=== PATIENT | male | born 1980 | race Caucasian/White ===

== ENCOUNTER 2020-03-23 10:48 | Emergency (ER) | payer OTHER ==
[~2020-03-23 10:48] MED LIST: BENTYL 20MG TAB20 MG PO; FAMOTIDINE20 MG PO; FLEXERIL 10 MG10 MG PO; FLOMAX 0.4 MG0.4 MG PO; IBUPROFEN800 MG PO; KLONOPIN1 MG PO; LATUDA80 MG PO; LIPITOR40 MG PO; METHOCARBAMOL500 MG PO; NEXIUM40 MG PO; NORCO 10-325 T1 EACH PO; NORVASC2.5 MG PO; PEPCID40 MG PO; PROZAC 20 MG CA20 MG PO; SYNTHROID25 MCG PO; ZOFRAN ODT 4 MG4 MG SL; ZOFRAN4 MG PO
[2020-03-23 12:20] LABS: HEMOGLOBIN 12.6 gm/dl (14.0-17.5); RED BLOOD COUNT 4.34 M/UL (4.20-5.50); WHITE BLOOD COUNT 4.6 K/UL (4.5-11.0)
[2020-03-23 12:49] LABS: BUN/CREATININE RATIO 9 (0-10)
[2020-03-23] MEDS ORDERED: ZITHROMAX250 MG PO (14:53)
[2020-03-23] MEDS ORDERED: AMOXICILLIN500 MG PO (14:53)
== END 2020-03-23 15:05 | disposition home or self-care (01) ==
LOC: ER1 10:48
PROVIDERS: Emergency Medicine
DX: J18.9 Pneumonia, unspecified organism (principal); J44.9 Chronic obstructive pulmonary disease, unspecified; Z20.822 Contact with and (suspected) exposure to COVID-19
CPT/HCPCS: 36600; 71045; 80053; 82550; 82553; 82728; 82803; 83615; 83874; 84484; 85025; 85379; 85384; 86140; 93005; 99285; U0002

== ENCOUNTER 2020-03-28 21:31 | Emergency (ER) | payer OTHER ==
[~2020-03-28 21:31] MED LIST changes: +AMOXICILLIN500 MG PO; +ZITHROMAX250 MG PO
== END 2020-03-29 00:41 | disposition left against medical advice (07) ==
LOC: ER1 21:31
DX: R07.9 Chest pain, unspecified (principal); Z53.21 Procedure and treatment not carried out due to patient leaving prior to being seen by health care provider
CPT/HCPCS: 93005

== ENCOUNTER 2020-04-01 15:33 | Emergency (ER) | payer OTHER ==
[2020-04-01 17:41] LABS: HEMOGLOBIN 12.2 gm/dl (14.0-17.5); RED BLOOD COUNT 4.14 M/UL (4.20-5.50); WHITE BLOOD COUNT 5.1 K/UL (4.5-11.0)
[2020-04-01 18:24] LABS: BUN/CREATININE RATIO 9 (0-10)
== END 2020-04-01 19:10 | disposition home or self-care (01) ==
LOC: ER1 15:33
PROVIDERS: Family Medicine
DX: R07.9 Chest pain, unspecified (principal); Z87.01 Personal history of pneumonia (recurrent)
CPT/HCPCS: 71045; 80053; 82550; 82553; 83874; 84484; 85025; 93005; 99285

== ENCOUNTER 2020-05-09 16:26 | Emergency (ER) | payer OTHER ==
[2020-05-09 19:26] LABS: HEMOGLOBIN 13.6 gm/dl (14.0-17.5); RED BLOOD COUNT 4.52 M/UL (4.20-5.50); WHITE BLOOD COUNT 9.7 K/UL (4.5-11.0)
[2020-05-09 19:49] LABS: BUN/CREATININE RATIO 8 (0-10)
== END 2020-05-09 21:50 | disposition left against medical advice (07) ==
LOC: ER1 16:26
PROVIDERS: Physician Assistant
DX: R07.89 Other chest pain (principal); I10 Essential (primary) hypertension; Z90.49 Acquired absence of other specified parts of digestive tract; Z20.822 Contact with and (suspected) exposure to COVID-19
CPT/HCPCS: 0240U; 36415; 71045; 80053; 82550; 82553; 83874; 84484; 85025; 93005; 99285

== ENCOUNTER 2020-07-16 10:42 | Emergency (ER) | payer OTHER ==
[2020-07-16 12:32] LABS: HEMOGLOBIN 12.4 gm/dl (14.0-17.5); RED BLOOD COUNT 4.11 M/UL (4.20-5.50); WHITE BLOOD COUNT 5.1 K/UL (4.5-11.0)
[2020-07-16 12:59] LABS: BUN/CREATININE RATIO 7 (0-10)
== END 2020-07-16 17:58 | disposition home or self-care (01) ==
LOC: ER1 10:42
PROVIDERS: Emergency Medicine
DX: R07.9 Chest pain, unspecified (principal)
CPT/HCPCS: 71045; 80053; 82550; 82553; 84484; 85025; 85379; 85610; 85730; 93005; 99285; Q9967

== ENCOUNTER 2020-12-21 18:20 | Emergency (ER) | payer OTHER ==
[2020-12-21 19:52] LABS: BUN/CREATININE RATIO 7 (0-10)
[2020-12-21 20:54] LABS: HEMOGLOBIN 12.6 gm/dl (14.0-17.5); RED BLOOD COUNT 4.2 M/UL (4.20-5.50); WHITE BLOOD COUNT 6.2 K/UL (4.5-11.0)
== END 2020-12-21 21:01 | disposition home or self-care (01) ==
LOC: ER1 18:20
PROVIDERS: Physician Assistant
DX: R07.9 Chest pain, unspecified (principal); Z90.89 Acquired absence of other organs; Z90.49 Acquired absence of other specified parts of digestive tract
CPT/HCPCS: 71045; 80053; 82550; 82553; 83874; 84484; 85025; 99284

== ENCOUNTER 2021-01-30 14:47 | Emergency (ER) | payer OTHER ==
[2021-01-30 18:52] LABS: HEMOGLOBIN 13.3 gm/dl (14.0-17.5); RED BLOOD COUNT 4.41 M/UL (4.20-5.50); WHITE BLOOD COUNT 6.2 K/UL (4.5-11.0)
[2021-01-30 19:13] LABS: BUN/CREATININE RATIO 7 (0-10)
[2021-01-30] MEDS ORDERED: AZITHROMYCIN500 MG PO (23:32)
[2021-01-30] MEDS ORDERED: PREDNISONE10 MG PO (23:32)
== END 2021-01-30 23:55 | disposition home or self-care (01) ==
LOC: ER1 14:47
PROVIDERS: Emergency Medicine
DX: J44.1 Chronic obstructive pulmonary disease with (acute) exacerbation (principal)
CPT/HCPCS: 71045; 80053; 82550; 82553; 83605; 83874; 84484; 85025; 85379; 93005; 99285; J0456; Q9967

== ENCOUNTER 2021-04-14 17:14 | Emergency (ER) | payer OTHER ==
[~2021-04-14 17:14] MED LIST changes: +AZITHROMYCIN500 MG PO; +PREDNISONE10 MG PO
[2021-04-14 22:49] LABS: HEMOGLOBIN 12.9 gm/dl (14.0-17.5); RED BLOOD COUNT 4.35 M/UL (4.20-5.50); WHITE BLOOD COUNT 5.5 K/UL (4.5-11.0)
[2021-04-14 23:09] LABS: BUN/CREATININE RATIO 6 (0-10)
== END 2021-04-15 00:06 | disposition home or self-care (01) ==
LOC: ER1 17:14
PROVIDERS: Family Medicine
DX: R33.9 Retention of urine, unspecified (principal); Z88.1 Allergy status to other antibiotic agents
CPT/HCPCS: 51702; 80048; 81001; 85025; 87086; 99283

== ENCOUNTER 2021-07-17 20:49 | Emergency (ER) | payer OTHER ==
[2021-07-17 21:31] LABS: BUN/CREATININE RATIO 8 (0-10)
[2021-07-17 22:16] LABS: HEMOGLOBIN 12.5 gm/dl (14.0-17.5); RED BLOOD COUNT 4.06 M/UL (4.20-5.50); WHITE BLOOD COUNT 7.5 K/UL (4.5-11.0)
== END 2021-07-17 23:50 | disposition home or self-care (01) ==
LOC: ER1 20:49
PROVIDERS: Family Medicine
DX: E16.2 Hypoglycemia, unspecified (principal); J44.9 Chronic obstructive pulmonary disease, unspecified; Z79.899 Other long term (current) drug therapy
CPT/HCPCS: 71045; 80053; 81001; 82550; 82553; 82962; 84484; 85025; 93005; 99285

== ENCOUNTER 2021-08-18 13:05 | Emergency (ER) | payer OTHER ==
[~2021-08-18] VITALS: Ht 205.7 cm; Wt 106.6 kg
[~2021-08-18 13:05] MED LIST changes: +HYDROCODON-ACE1 EAC6 PO; -NORCO 10-325 T1 EACH PO
[2021-08-18 13:54] LABS: HEMOGLOBIN 12.5 gm/dl (14.0-17.5); RED BLOOD COUNT 4.17 M/UL (4.20-5.50)
[2021-08-18 14:17] LABS: BUN/CREATININE RATIO 8 (0-10)
[2021-08-18] MEDS ORDERED: ZITHROMAX250 MG PO (17:15)
[2021-08-19 06:18] LABS: HEMOGLOBIN 10.7 gm/dl (14.0-17.5); WHITE BLOOD COUNT 3.6 K/UL (4.5-11.0)
[2021-08-19 06:20] LABS: RED BLOOD COUNT 3.59 M/UL (4.20-5.50)
[2021-08-19 06:54] LABS: BUN/CREATININE RATIO 7 (0-10)
[2021-08-19] MEDS ORDERED: DULERA 100 MCG8.8 GM INH (13:26)
[2021-08-19] MEDS ORDERED: IPRAT-ALBUT 0.5-3 ML INH (13:26)
[2021-08-19] MEDS ORDERED: ABILIFY MAINTE400 M1 IM (13:27)
[2021-08-19] MEDS ORDERED: PROTONIX 40 MG40 M1 PO (13:28)
[2021-08-20 05:02] LABS: HEMOGLOBIN 11.6 gm/dl (14.0-17.5); RED BLOOD COUNT 3.84 M/UL (4.20-5.50); WHITE BLOOD COUNT 3.5 K/UL (4.5-11.0)
[2021-08-20 05:18] LABS: BUN/CREATININE RATIO 6 (0-10)
[2021-08-20] MEDS ORDERED: OMNICEF 300 MG300 MG PO (10:47)
[2021-08-20 13:10] LABS: C-PEPTIDE, SERUM 1.7 ng/mL (1.1-4.4); CORTISOL 3.9 ug/dL (.)
[2021-08-23 22:07] LABS: BETA-HYDROXYBUTYRATE 0.6 mg/dL (.); FREE INSULIN 1.4 uU/mL (.); TOTAL INSULIN 1.4 uU/mL (.)
== END 2021-08-20 12:29 | disposition home or self-care (01) ==
LOC: ER1 13:05
PROVIDERS: Internal Medicine; Physician Assistant
DX: E16.2 Hypoglycemia, unspecified (principal); R91.8 Other nonspecific abnormal finding of lung field; R07.89 Other chest pain; Z90.49 Acquired absence of other specified parts of digestive tract; Z90.89 Acquired absence of other organs; Z20.822 Contact with and (suspected) exposure to COVID-19; Z51.81 Encounter for therapeutic drug level monitoring
CPT/HCPCS: 0240U; 71045; 80048; 80053; 82010; 82533; 82550; 82553; 82962; 83003; 83735; 84206; 84439; 84443; 84484; 84681; 85025; 85379; 85610; 93005; 96365; 96366; 96367; 96375; 96376; 99285; G0481; J0456; J0696; J2405; J7070

== ENCOUNTER 2021-12-17 17:35 | Observation (INO) | payer OTHER ==
[~2021-12-17] VITALS: Ht 205.7 cm; Wt 107.0 kg
[~2021-12-17 17:35] MED LIST changes: +ABILIFY MAINTE400 M1 IM; +DULERA 100 MCG8.8 GM INH; +IPRAT-ALBUT 0.5-3 ML INH; +OMNICEF 300 MG300 MG PO; +PROTONIX 40 MG40 M1 PO; -PROZAC 20 MG CA20 MG PO; +PROZAC40 MG PO
[2021-12-17 19:34] LABS: HEMOGLOBIN 12.5 gm/dl (14.0-17.5); RED BLOOD COUNT 4.26 M/UL (4.20-5.50); WHITE BLOOD COUNT 5.1 K/UL (4.5-11.0)
[2021-12-17 20:56] LABS: BUN/CREATININE RATIO 11 (0-10)
[2021-12-18] MEDS ORDERED: OCTREOTIDE INJ (11:41)
[2021-12-18] MEDS ORDERED: LIDOCAINE1 EAC1 TOP (11:41)
[2021-12-18] MEDS ORDERED: NITROGLYCERIN0.4 MG SL (11:42)
[2021-12-18] MEDS ORDERED: LANSOPRAZOLE30 MG PO (11:42)
[2021-12-18] MEDS ORDERED: ASPIRIN EC81 MG PO (17:15)
[2021-12-19 02:49] LABS: HEMOGLOBIN 11.5 gm/dl (14.0-17.5); RED BLOOD COUNT 3.89 M/UL (4.20-5.50); WHITE BLOOD COUNT 5.3 K/UL (4.5-11.0)
[2021-12-19 03:19] LABS: BUN/CREATININE RATIO 14 (0-10)
[2021-12-19] MEDS ORDERED: FOLIC ACID 1 MG1 MG PO (09:44)
== END 2021-12-19 11:22 | disposition home or self-care (01) ==
LOC: ER1 17:35 → CDU 21:30 → M/S 12-18 17:53
PROVIDERS: Internal Medicine; Student in an Organized Health Care Education/Training Program; ADMIT Internal Medicine
DX: R20.2 Paresthesia of skin (principal); E16.2 Hypoglycemia, unspecified; E53.8 Deficiency of other specified B group vitamins; F20.9 Schizophrenia, unspecified; G89.29 Other chronic pain; M54.9 Dorsalgia, unspecified; Z79.899 Other long term (current) drug therapy
CPT/HCPCS: ECHO; 36415; 70450; 70496; 70498; 70551; 71045; 80048; 80053; 80061; 82550; 82553; 82607; 82746; 82962; 83036; 83735; 84439; 84443; 84484; 85025; 85027; 85610; 85730; 92610; 93005; 93306; 94664; 96372; 97165; 99285; G0378; J1650; J2354; Q9967